=== PATIENT | female | born 1980 | race Caucasian/White ===

== ENCOUNTER 2021-04-14 16:41 | Emergency (ER) | payer BC, OTHER ==
[2021-04-14 18:15] VITALS: BP 147/70; PULSE 97; RESP 18; TEMP 99.1
--- NOTE | 2021-04-14 18:40 | XR ---
EXAMINATION TYPE: XR ankle complete LT DATE OF EXAM: 04/14/2021 COMPARISON: NONE HISTORY: Foot pain and ankle pain TECHNIQUE: 3 views FINDINGS: Ankle mortise is anatomic. There is mild soft tissue swelling around the ankle. There is pl kandace calcaneal spurring. I see no fracture nor dislocation. IMPRESSION: Mild soft tissue swelling. No fracture.
--- NOTE | 2021-04-14 18:44 | XR ---
EXAMINATION TYPE: XR foot complete LT DATE OF EXAM: 04/14/2021 COMPARISON: NONE HISTORY: 41 ankle pain TECHNIQUE: 3 views FINDINGS: There is plantar calcaneal spurring. There is intact metatarsals. Ankle mortise appears int act. There are no erosions. There is no subluxation. Impression Calcaneal spurring. No fracture seen.
[2021-04-14] MEDS ORDERED: NAPROXEN 250 MG TAB PO STA (19:52)
--- NOTE | 2021-04-14 19:54 | ED ---
Lower Extremity Injury HPI - General Chief Complaint: Extremity Injury, Lower Stated Complaint: L foot pain Time Seen by Provider: 04/14/21 19:36 Source: patient Mode of arrival: ambulatory Limitations: no limitations - History of Present Illness Initial Comments: 41-year-old female patient presents to the emergency department today for evaluation of right foot pain. States her pain is around the right lateral ankle. States she was at work when the pain started. She denies wearing new footwear. Denies any known injury. Denies numbness or tingling to the foot. She has not taking anything for pain. Denies history of similar symptoms. Denies fever or chills. - Related Data Previous Rx's Medication Instructions Recorded Naproxen [EC-Naprosyn] 500 mg PO BID PRN #30 tab 04/14/21 Allergies Allergy/AdvReac Type Severity Reaction Status Date / Time No Known Allergies Allergy Verified 04/14/21 18:15 Review of Systems ROS Statement: Those systems with pertinent positive or pertinent negative responses have been documented in the HPI. ROS Other: All systems not noted in ROS Statement are negative. Past Medical History Past Medical History: No Reported History History of Any Multi-Drug Resistant Organisms: None Reported Past Surgical History: Cholecystectomy Past Psychological History: No Psychological Hx Reported Smoking Status: Current every day smoker Past Alcohol Use History: None Reported Past Drug Use History: None Reported General Exam Limitations: no limitations General appearance: alert, in no apparent distress, other (This is a well- developed, well-nourished adult female in no acute distress.) Respiratory exam: Present: normal lung sounds bilaterally. Absent: respiratory distress, wheezes, rales, rhonchi, stridor Cardiovascular Exam: Present: regular rate, normal rhythm, normal heart sounds. Absent: systolic murmur, diastolic murmur, rubs, gallop, clicks GI/Abdominal exam: Present: soft, normal bowel sounds. Absent: distended, tenderness, guarding, rebound, rigid Extremities exam: Present: full ROM, normal capillary refill, other (There is mild soft tissue swelling noted to the right lateral ankle. No overlying erythema. There is slightly tender to touch. Skin is otherwise pink, warm, dry. Cap refill less than 3 seconds. Pedal and posttibial pulses 2+.). Absent: tenderness, pedal edema, joint swelling, calf tenderness Neurological exam: Present: alert, oriented X3, CN II-XII intact Psychiatric exam: Present: normal affect, normal mood Skin exam: Present: warm, dry, intact, normal color. Absent: rash Course Vital Signs 04/14/21 18:12 Temperature 99.1 F Pulse Rate 97 Respiratory 18 Rate Blood Pressure 147/70 O2 Sat by Pulse 99 Oximetry Medical Decision Making - Medical Decision Making 41-year-old female patient presented for evaluation of right ankle pain started at work. Physical examination revealed possible mild soft tissue swelling. Neurovascular status is intact. X-ray of the foot and ankle were negative. She will be discharged to trial rest, ice, elevation, anti-inflammatory medication. She is given an Stefan wrap. She'll be discharged follow up with the primary care physician for recheck in 1-2 days. Return parameters discussed in detail. She verbalizes understanding and agrees with this plan. My attending is Dr. Palmer. - Radiology Data Radiology results: report reviewed, image reviewed 3 views of the left ankle are obtained. Report was reviewed in its entirety. Impression by Dr. Yang shows mild soft tissue swelling. No fracture. 3 views of the left foot are obtained. Report is reviewed in its entirety. Impression by Dr. Parham shows calcaneal spurring. No fracture seen. Disposition Clinical Impression: Left ankle strain Disposition: HOME SELF-CARE Condition: Good Instructions (If sedation given, give patient instructions): Ankle Strain (ED) Additional Instructions: Use Stefan wrap for compression and support. Apply ice as needed. Take naproxen as directed. Rest for 2 days. Follow-up with the primary care physician for recheck in 1-2 days. Follow-up with orthopedic her symptoms are not improved. Return for any new, worsening, or concerning symptoms. Prescriptions: Naproxen [EC-Naprosyn] 500 mg PO BID PRN #30 tab PRN Reason: Pain Is patient prescribed a controlled substance at d/c from ED?: No Referrals: Jaime Kwok DO [Doctor of Osteopathic Medicine] - 1-2 days Time of Disposition: 19:54
== END 2021-04-14 20:03 | disposition home or self-care (01) ==
LOC: EC 16:41
DX: S93.402A Sprain of unspecified ligament of left ankle, initial encounter (principal); F17.200 Nicotine dependence, unspecified, uncomplicated; X58.XXXA Exposure to other specified factors, initial encounter
CPT/HCPCS: 99283

== ENCOUNTER 2022-04-15 09:28 | Day surgery (SDC) | payer BC ==
--- NOTE | 2022-04-14 16:23 | P.HPOB ---
History of Present Illness H&P Date: 04/14/22 Chief Complaint: family planning 42 year old presents for laparoscopic tubal ligation and removal of IUD. Review of Systems All systems: negative Constitutional: Denies chills, Denies fever Eyes: denies blurred vision, denies pain Ears, nose, mouth and throat: Denies headache, Denies sore throat Cardiovascular: Denies chest pain, Denies shortness of breath Respiratory: Denies cough Gastrointestinal: Denies abdominal pain, Denies diarrhea, Denies nausea, Denies vomiting Genitourinary: Denies dysuria, Denies hematuria Musculoskeletal: Denies myalgias Integumentary: Denies pruritus, Denies rash Neurological: Denies numbness, Denies weakness Psychiatric: Denies anxiety, Denies depression Endocrine: Denies fatigue, Denies weight change Past Medical History Past Medical History: No Reported History History of Any Multi-Drug Resistant Organisms: None Reported Past Surgical History: Cholecystectomy Additional Past Surgical History / Comment(s): LEEP Smoking Status: Current every day smoker Medications and Allergies Home Medications Medication Instructions Recorded Confirmed Type Cetirizine HCl [Zyrtec] 1 tab PO HS 04/12/22 04/12/22 History Cholecalciferol (Vitamin D3) 1 tab PO DAILY 04/12/22 04/12/22 History [Vitamin D3 (3000 Iu)] Multivitamins, Thera [Multivitamin 1 tab PO DAILY 04/12/22 04/12/22 History (formulary)] Allergies Allergy/AdvReac Type Severity Reaction Status Date / Time Penicillins Allergy Rash/Hives Verified 04/12/22 09:12 Exam Osteopathic Statement: *. No significant issues noted on an osteopathic structural exam other than those noted in the History and Physical/Consult. HEart: RRR Lungs: CTAB Abdomen: soft, nontender Extremeties: neg wiley's Assessment and Plan (1) Family planning Status: Acute Code(s): Z30.09 - ENCOUNTER FOR OTH GENERAL CNSL AND ADVICE ON CONTRACEPTION SNOMED Code(s): 438531499 (2) Awaiting removal of contraceptive intrauterine device (IUD) Status: Acute Code(s): Z30.432 - ENCOUNTER FOR REMOVAL OF INTRAUTERINE CONTRACEPTIVE DEVICE SNOMED Code(s): 627411474 Plan: 1. laparoscopic tubal ligation with removal of IUD
[~2022-04-15 09:28] MED LIST: DEXAMETHASONE SOD PHOSPHATE 4 MG/ML 1 ML VIAL IV ONE; HYDROmorphone 0.5 MG/0.5 ML SYRINGE IVP PRN; LACTATED RINGERS 1,000 ML IV SCH; ONDANSETRON 4 MG/2 ML VIAL IVP ONE; Pre Op ABX Message 1 EACH MISC MISCELLANE ONE
[2022-04-15] MEDS ORDERED: LACTATED RINGERS 1,000 ML IV ONE (09:38)
[2022-04-15] MEDS ORDERED: DEXAMETHASONE SOD PHOSPHATE 4 MG/ML 1 ML VIAL IVP ONE (10:03)
[2022-04-15] MEDS ORDERED: ONDANSETRON 4 MG/2 ML VIAL IVP ONE (10:03)
[2022-04-15] MEDS ORDERED: LIDOCAINE 2% INJ 20 MG/ML (2 ML VIAL) ONE (10:57)
[2022-04-15] MEDS ORDERED: MIDAZOLAM 2 MG/2 ML VIAL ONE ×2 (10:57→13:22)
[2022-04-15] MEDS ORDERED: PROPOFOL 10 MG/ML 20 ML VIAL IV ONE ×2 (10:57→13:22)
[2022-04-15] MEDS ORDERED: fentaNYL (PF) 50 MCG/ML 2 ML AMP ONE ×2 (10:57→13:22)
--- NOTE | 2022-04-15 11:33 | P.OP ---
Date of Procedure: 04/15/22 Preoperative Diagnosis: 1. menorrhagia Postoperative Diagnosis: 1. menorrhagia Procedure(s) Performed: Removal of IUD, D&C hysteroscopy endometrial ablation with NovaSure Anesthesia: MAC (LMA) Surgeon: Mary Perez Estimated Blood Loss (ml): 2 IV fluids (ml): 300 Urine output (ml): 50 Pathology: other (Endometrial curettings) Condition: stable Disposition: PACU Operative Findings: ParaGard IUD easily removed, cavity length 5 cm, width 2.5 cm, power 69 Alcantar time of ablation just over a minute Description of Procedure: Patient is taken the operating room where general anesthesia was obtained darrell moreno. She was prepped and draped in normal sterile fashion dorsal lithotomy position, legs placed in the candy cane stirrups. Bladder was drained of all urine. Weighted speculum placed in the vagina and the anterior lip the cervix was grasped with serial tooth tenaculum. IUD strings noted at the cervix. Ring forcep used to easily remove this IUD. The uterus sounded to 8 cm and the cervix 3cm making the cavity length 5 cm. The cervix was dilated to #8 Hegar dilator. Hysteroscopy was then performed. Both ostia were visualized and there was a smooth contour of the uterus. Sharp curet was then gently used to obtain endometrial curettings. The NovaSure was introduced into the uterus with a cavity length of 5 cm, width 2.5 cm. after cavity assessment was passed, the time of ablation was 82 seconds at 69 W. Hysteroscopy was again performed and adequate ablation was noted. All instruments removed from the vagina. Patient tolerated the procedure well, sponge and instrument counts were correct 2 and she was taken to recovery in stable condition.
[2022-04-15 11:40] VITALS: TEMP 97.2
[2022-04-15 12:20] VITALS: RESP 16
[2022-04-15 12:48] VITALS: BP 148/86; PULSE 68
[2022-04-15] MEDS ORDERED: KETAMINE 10 MG/ML 20 ML VIAL ONE (13:22)
== END 2022-04-15 13:03 | disposition home or self-care (01) ==
LOC: OR 09:28
PROVIDERS: ATTEND Obstetrics & Gynecology
DX: N85.8 Other specified noninflammatory disorders of uterus (principal); Z30.432 Encounter for removal of intrauterine contraceptive device; J44.9 Chronic obstructive pulmonary disease, unspecified; F17.200 Nicotine dependence, unspecified, uncomplicated; Z90.49 Acquired absence of other specified parts of digestive tract; Z98.890 Other specified postprocedural states; Z88.0 Allergy status to penicillin; Z79.899 Other long term (current) drug therapy; Z79.52 Long term (current) use of systemic steroids; Z79.1 Long term (current) use of non-steroidal anti-inflammatories (NSAID)
CPT/HCPCS: 81025; 88305; 58563; 58301; J2250; J1100; J2405; J3010; J2704; J2001

== ENCOUNTER → 2022-04-29 | Outpatient (CLI) | payer BC ==
--- NOTE | 2022-05-02 19:11 | MM ---
Reason for Exam: Screening (asymptomatic). Baseline mammogram. Patient History: Menarche at age 11. First Full-Term at age 22. Premenopausal. Paternal aunt had breast cancer under age 50. Paternal aunt had breast cancer under age 50. Paternal aunt had breast cancer under age 50. Risk Values: Pauline 5 year model risk: 0.6%. NCI Lifetime model risk: 9.7%. Prior Study Comparison: Patient's first Mammogram. Tissue Density: There are scattered fibroglandular densities. Findings: Analyzed By CAD. No significant mass, suspicious microcalcification, or other discrete abnormality is seen. Overall Assessment: Negative, BI-RAD 1 Management: Screening Mammogram of both breasts in 1 year. 1. Patient should continue monthly self breast exams. 2. A clinical breast exam by your physician is recommended on an annual basis. 3. This exam should not preclude additional follow-up of suspicious palpable abnormalities. Electronically signed and approved by: Beverly Lares M.D. Radiologist
== END | disposition home or self-care (01) ==
LOC: RADMAMWWP 16:25
PROVIDERS: ATTEND Obstetrics & Gynecology
DX: Z12.31 Encounter for screening mammogram for malignant neoplasm of breast (principal); Z80.3 Family history of malignant neoplasm of breast
CPT/HCPCS: 77067

== ENCOUNTER → 2022-09-13 | Outpatient (CLI) | payer BC ==
--- NOTE | 2022-09-13 14:35 | US ---
EXAMINATION TYPE: US pelvic complete DATE OF EXAM: 09/13/2022 COMPARISON: Pelvic ultrasound 01/29/2016 CLINICAL INDICATION: Female, 42 years old with history of N92.0 EXCESSIVE AND FREQUENT MENSTRUATION W ITH RE; h/o D&C with ablation April 2022 TECHNIQUE: TA. Transabdominal sonographic images of the pelvis were acquired. Date of LMP: heavy, irregular cycles EXAM MEASUREMENTS: Uterus: 7.0 x 4.3 x 5.0cm Endometrial Stripe: 0.6 cm Right Ovary: 2.6 x 1.8 x 1.7 cm Left Ovary: 1.1 x 1.8 x 1.8 cm 1. Uterus: Anteverted wnl 2. Endometrium: wnl 3. Right Ovary: dominate follicle = 1.7 x 1.4 x 1.2cm 4. Left Ovary: wnl 5. Bilateral Adnexa: wnl 6. Posterior cul-de-sac: wnl Unremarkable anteverted uterus. Endometrium is within normal limits. Both ovaries are within normal l imits with dominant right ovarian follicle. No free fluid. IMPRESSION: No ultrasound evidence for an acute pelvic process.
== END | disposition home or self-care (01) ==
LOC: RADUSWWP 13:38
PROVIDERS: ATTEND Obstetrics & Gynecology
DX: N92.0 Excessive and frequent menstruation with regular cycle (principal)
CPT/HCPCS: 76856

== ENCOUNTER → 2022-10-27 | Outpatient (CLI) | payer BC ==
[2022-10-27 20:14] LABS: Blood Urea Nitrogen 6.1 mg/dL (9.0-27.0); Calcium 10.2 mg/dL (8.7-10.3); Carbon Dioxide 25.6 mmol/L (21.6-31.8); Chloride 102 mmol/L (96-109); Glucose 109 mg/dL (70-110); Potassium 4.7 mmol/L (3.5-5.5); Sodium 139 mmol/L (135-145)
[2022-10-27 20:36] LABS: Basophils # (A) 0.06 X 10*3/uL (0.00-0.10); Basophils % (A) 0.4 %; Eosinophils # (A) 0.16 X 10*3/uL (0.04-0.35); Eosinophils % (A) 1.1 %; HCT 42.9 % (37.2-46.3); HGB 13.8 d/dL (12.0-15.0); Lymphocytes % (A) 24.1 %; MCH 28.6 pg (27.0-32.0); MCHC 32.2 d/dL (32.0-37.0); MCV 88.8 FL (80.0-97.0); Mean Platelet Volume 10.5 FL (9.5-12.2); Monocytes # (A) 0.42 X 10*3/uL (0.20-1.00); Monocytes % (A) 2.9 %; NRBC Per 100 WBC 0 X 10*3/uL (0.00-0.01); Neutrophils # (A) 10.31 X 10*3/uL (1.80-7.70); Platelet Count 481 X 10*3/uL (140-440); RBC 4.83 X 10*6/uL (4.10-5.20); RDW 14.8 % (11.5-14.5); WBC 14.52 X 10*3/uL (4.50-10.00)
== END | disposition home or self-care (01) ==
LOC: LABPAT 14:19
PROVIDERS: ATTEND Obstetrics & Gynecology
DX: Z01.812 Encounter for preprocedural laboratory examination (principal)
CPT/HCPCS: 80048; 85025; 86850; 86900; 86901

== ENCOUNTER 2022-11-04 05:41 | Day surgery (SDC) | payer BC ==
[2022-10-28 15:07] VITALS: BMI 35.5
--- NOTE | 2022-11-03 15:22 | P.HPOB ---
History of Present Illness H&P Date: 11/03/22 Chief Complaint: menorrhagia 42 year old presents for total laparoscopic hysterectomy bilateral salpingectomy using da erik and diagnostic cystoscopy. Review of Systems All systems: negative Constitutional: Denies chills, Denies fever Eyes: denies blurred vision, denies pain Ears, nose, mouth and throat: Denies headache, Denies sore throat Cardiovascular: Denies chest pain, Denies shortness of breath Respiratory: Denies cough Gastrointestinal: Denies abdominal pain, Denies diarrhea, Denies nausea, Denies vomiting Genitourinary: Denies dysuria, Denies hematuria Musculoskeletal: Denies myalgias Integumentary: Denies pruritus, Denies rash Neurological: Denies numbness, Denies weakness Psychiatric: Denies anxiety, Denies depression Endocrine: Denies fatigue, Denies weight change Past Medical History Past Medical History: No Reported History History of Any Multi-Drug Resistant Organisms: None Reported Past Surgical History: Cholecystectomy, Uterine Ablation Additional Past Surgical History / Comment(s): LEEP procedure. Past Anesthesia/Blood Transfusion Reactions: No Reported Reaction Additional Past Anesthesia/Blood Transfusion Reaction / Comment(s): "Grandmerle had issues, had to have extra medicine in his IV" - unsure what issues were. Past Psychological History: No Psychological Hx Reported Smoking Status: Current every day smoker Past Alcohol Use History: None Reported Additional Past Alcohol Use History / Comment(s): Has been smoking for 15 yrs, 1 ppd. Past Drug Use History: None Reported - Past Family History Mother Family Medical History: No Reported History Medications and Allergies Home Medications Medication Instructions Recorded Confirmed Type Cetirizine HCl [Zyrtec] 10 mg PO HS 04/12/22 10/28/22 History Cholecalciferol (Vitamin D3) 1 tab PO DAILY 04/12/22 10/28/22 History [Vitamin D3 (3000 Iu)] Multivitamins, Thera [Multivitamin 1 tab PO DAILY 04/12/22 10/28/22 History (formulary)] Ibuprofen [Motrin] 600 mg PO Q6HR PRN #30 tab 04/15/22 10/28/22 Rx Allergies Allergy/AdvReac Type Severity Reaction Status Date / Time Penicillins Allergy Rash/Hives Verified 10/28/22 14:56 Exam Osteopathic Statement: *. No significant issues noted on an osteopathic structural exam other than those noted in the History and Physical/Consult. HEart: RRR Lungs: CTAB Abdomen: soft, nontender Extremeties: neg wiley's Assessment and Plan (1) Menorrhagia Status: Acute Code(s): N92.0 - EXCESSIVE AND FREQUENT MENSTRUATION WITH REGULAR CYCLE SNOMED Code(s): 259967339 Plan: 1. TL BS using da erik and diagnostic cystoscopy
[2022-11-04] MEDS ORDERED: DEXAMETHASONE SOD PHOSPHATE 4 MG/ML 1 ML VIAL IV ONE (05:54)
[2022-11-04] MEDS ORDERED: ONDANSETRON 4 MG/2 ML VIAL IVP ONE (05:54)
[2022-11-04] MEDS ORDERED: HYDROmorphone 0.5 MG/0.5 ML SYRINGE IVP PRN (05:54)
[2022-11-04] MEDS: LACTATED RINGERS 1,000 ML IV SCH (06:43)
[2022-11-04] MEDS ORDERED: BUPIVACAINE (PF) 0.25% 30 ML VIAL SQ ONE ×2 (07:41→08:40)
[2022-11-04] MEDS ORDERED: MIDAZOLAM 2 MG/2 ML VIAL IVP ONE (07:53)
[2022-11-04] MEDS ORDERED: SUCCINYLCHOLINE CHLORIDE 200 MG/10 ML VIAL IV ONE (07:55)
[2022-11-04] MEDS ORDERED: fentaNYL (PF) 50 MCG/ML 2 ML AMP ONE (07:55)
[2022-11-04] MEDS ORDERED: NEOSTIGMINE 1 MG/ML 10 ML VIAL ONE (07:55)
[2022-11-04] MEDS ORDERED: PROPOFOL 10 MG/ML 20 ML VIAL IV ONE (07:55)
[2022-11-04] MEDS ORDERED: GLYCOPYRROLATE 0.2 MG/ML 2 ML VIAL ONE (07:55)
[2022-11-04] MEDS ORDERED: ROCURONIUM 10 MG/ML (5 ML VIAL) IV ONE (07:55)
[2022-11-04] MEDS ORDERED: MORPHINE SULFATE (PF) 0.3 MG/0.3 ML SYR ONE (07:55)
[2022-11-04] MEDS ORDERED: LIDOCAINE 2% INJ 20 MG/ML (2 ML VIAL) ONE (07:55)
--- NOTE | 2022-11-04 08:03 | P.ANPRN ---
Procedure Note - Anesthesia - Epidural/Spinal Spinal Time Out Performed: Yes Date of Procedure: 11/04/22 Procedure Start Time: 07:51 Procedure Stop Time: 07:56 Location of Patient: PreOp Indication: Acute Post-Operative Pain, Requested by Surgeon Sedation Type: Sedate with meaningful contact maintained Preparation: Sterile Dressing Position: Sitting Catheter: None Needle Guage: 25, Other (see comment) (At L4-L5 interspinous space , One attempt. Sterile dressing applied after needle removed over the entry site.) Blood Aspirated: No Pain Paresthesia on Injection Noted: No Events: Uneventful and Well Tolerated (A mixture of 300 g of preservative free morphine mixed with 25 g of fentanyl used)
[2022-11-04] MEDS ORDERED: LACTATED RINGERS 1,000 ML IV ONE (09:06)
--- NOTE | 2022-11-04 09:35 | P.OP ---
Date of Procedure: 11/04/22 Preoperative Diagnosis: 1. menorrhagia 2. family history of BRCA2+ Postoperative Diagnosis: same Procedure(s) Performed: Total laparoscopic hysterectomy bilateral salpingo-oophorectomy using da Cruz and diagnostic cystoscopy Anesthesia: KATHERYN Surgeon: Mary Perez Measurement Advisor #1: Malou Hope Estimated Blood Loss (ml): 25 IV fluids (ml): 900 Urine output (ml): 50 Pathology: other (Uterus cervix bilateral tubes and ovaries) Condition: stable Disposition: PACU Description of Procedure: Patient taken the operating room where general anesthesia was obtained without difficulty. She is prepped and draped in normal sterile fashion dorsal lithotomy position, legs placed in the Kumar stirrups. Weighted speculum placed in the vagina and the anterior lip the cervix was grasped with single-tooth tenaculum. The uterus sounded to 9 cm. The Praedicatare manipulator was then placed in the uterus. Sutherland catheter was also placed. Attention was then turned to the abdomen and gloves were changed. A 5 mm supraumbilical incision was made the scalpel and a 5 mm optical trocar was placed under direct visualization. 10 cm to the right of this and 2 cm down a 5 mm incision was made and 8 mm da Cruz port was placed under direct visualization. Same measurements on the opposite side of the patient's abdomen, the 5 mm incision was made and 8 mm da Cruz port was placed under direct visualization. In the left upper quadrant a 10 mm incision was made and a 10 mm optical trocar was placed under direct visualization. The 5 mm optical trocar was then replaced with the 8 mm da Cruz camera port. The robot was docked on patient's right side. The camera was introduced and then the monopolar curved scissor and vessel sealer placed under direct visualization. I broke scrub and went to the physician console. The left pretibial pelvic ligament was sealed and cut using the vessel sealer. The left round ligament was sealed and cut using the vessel sealer. The posterior leaf of the broad ligament was taken down using the monopolar curved scissors. Anterior leaf of the broad ligament was then taken down using the monopolar curved scissors. The uterine artery was sealed and cut using the vessel sealer. The bladder flap was then started using the monopolar curved scissors. Attention was then turned to the right side of the patient's anatomy and the right infundibulopelvic ligament was sealed and cut with the vessel sealer. The right round ligament was sealed and cut with the vessel sealer. Posterior leaf of the broad ligament was taken down using the monopolar curved scissors and the anterior leaf was taken down using the monopolar curved scissors. The uterine artery was sealed and cut with the vessel sealer. The bladder flap was then finished on this side. Anterior colpotomy was made using the monopolar curved scissors. The rest of the uterus was from the vaginal cuff by following the ring around with the monopolar curved scissors through the uterosacral ligaments back to the anterior portion. Once the uterus and cervix were amputated they were pulled through the vaginal cuff. Hemostasis was assured. The monopolar scissors were changed for the alvin suture cut. The vaginal cuff was then closed using O stratafix barbed suture in a running fashion. Hemostasis was again assured and the pelvis was irrigated. All instruments were removed from the abdomen and the robot was undocked. I scrubbed back in to perform a cystoscopy. There were jets from both ureteral orifices. The abdominal incisions were closed with 4-0 Vicryl in a subcuticular fashion. Patient tolerated the procedure well, sponge and instrument counts correct 2 and she was taken to recovery room in stable condition condition
[2022-11-04] MEDS ORDERED: SIMETHICONE 80 MG CHEWABLE PO PRN (09:47)
[2022-11-04] MEDS ORDERED: Acetaminophen-Codeine 300-30mg TAB PO PRN ×2 (09:47)
[2022-11-04] MEDS ORDERED: KETOROLAC 15 MG/ML 1 ML VIAL IVP PRN (09:47)
[2022-11-04] MEDS ORDERED: IBUPROFEN 600 MG TAB PO PRN (09:47)
[2022-11-04] MEDS ORDERED: diphenhydrAMINE 50 MG/ML 1 ML VIAL IVP ONE (10:16)
[2022-11-04] MEDS ORDERED: ONDANSETRON 4 MG/2 ML VIAL IVP PRN (13:01)
[2022-11-04] MEDS ORDERED: NALOXONE 0.4 MG/ML 1 ML VIAL IV PRN (13:01)
[2022-11-04] MEDS ORDERED: NALBUPHINE 10 MG/ML (10 ML MDV) IV PRN (13:01)
[2022-11-04] MEDS ORDERED: LORATADINE 10 MG TAB PO SCH (21:00)
[2022-11-04] MEDS: SENNOSIDES-DOCUSATE SODIUM 1 EACH TAB PO SCH (21:19)
[2022-11-05] MEDS: LACTATED RINGERS 1,000 ML IV SCH (05:59)
--- NOTE | 2022-11-05 07:12 | P.PN ---
Progress Note - Text Progress Note Date: 11/05/22 Postop day 1 from hysterectomy under general anesthesia with intrathecal morphine given for postop pain management. Patient is doing well. Pain is well controlled. On visual analog scale 2/10 no itching present No nausea or vomiting reported. No Headache or weakness and numbness in the legs. No complications from spinal morphine.
[2022-11-05 07:49] VITALS: BP 135/82; PULSE 62; RESP 20; TEMP 98.5
[2022-11-05] MEDS: SENNOSIDES-DOCUSATE SODIUM 1 EACH TAB PO SCH (08:29)
[2022-11-05] MEDS ORDERED: ACETAMINOPHEN TAB 325 MG TAB PO PRN (09:36)
[2022-11-05 13:45] LABS: Basophils # (A) 0.04 X 10*3/uL (0.00-0.10); Basophils % (A) 0.3 %; Eosinophils % (A) 0.7 %; HCT 36.6 % (37.2-46.3); HGB 11.8 d/dL (12.0-15.0); Lymphocytes # (A) 4.23 X 10*3/uL (0.90-5.00); Lymphocytes % (A) 31.1 %; MCH 28.6 pg (27.0-32.0); MCHC 32.2 d/dL (32.0-37.0); MCV 88.6 FL (80.0-97.0); Mean Platelet Volume 10.1 FL (9.5-12.2); Monocytes # (A) 0.66 X 10*3/uL (0.20-1.00); Monocytes % (A) 4.9 %; NRBC Per 100 WBC 0 X 10*3/uL (0.00-0.01); Neutrophils % (A) 62.5 %; Platelet Count 389 X 10*3/uL (140-440); RBC 4.13 X 10*6/uL (4.10-5.20); RDW 14.6 % (11.5-14.5)
== END 2022-11-05 11:33 | disposition home or self-care (01) ==
LOC: OR 05:41 → 4SSUR 10:55 → OR 11-05 11:33
PROVIDERS: ATTEND Obstetrics & Gynecology
DX: N92.2 Excessive menstruation at puberty (principal); Z98.890 Other specified postprocedural states; N85.9 Noninflammatory disorder of uterus, unspecified; N83.202 Unspecified ovarian cyst, left side; N83.201 Unspecified ovarian cyst, right side; N83.8 Other noninflammatory disorders of ovary, fallopian tube and broad ligament; Z88.0 Allergy status to penicillin
CPT/HCPCS: 58571; S2900; 85025; 88307